=== PATIENT | female | born 1985 | race Caucasian/White ===

== ENCOUNTER 2023-04-08 16:58 | Outpatient (RCR) | payer OTHER, SELFPAY | END 2023-04-08 23:59 | disposition home or self-care (01) | LOC: RPT 16:58 | PROVIDERS: ATTENDING PHYSICIAN Specialist; FAMILY PHYSICIAN Family Medicine | DX: M75.31 Calcific tendinitis of right shoulder (principal); S43.431D Superior glenoid labrum lesion of right shoulder, subsequent encounter; M54.12 Radiculopathy, cervical region; M25.511 Pain in right shoulder; M54.2 Cervicalgia | CPT/HCPCS: 97110; 97112; 97140; 97530 ==

== ENCOUNTER 2023-05-05 14:00 | Outpatient (RCR) | payer OTHER, SELFPAY | END 2023-05-05 23:59 | disposition home or self-care (01) | LOC: RPT 14:00 | PROVIDERS: ATTENDING PHYSICIAN Specialist; FAMILY PHYSICIAN Family Medicine | DX: M75.31 Calcific tendinitis of right shoulder (principal); S43.431D Superior glenoid labrum lesion of right shoulder, subsequent encounter; M54.12 Radiculopathy, cervical region; M25.511 Pain in right shoulder; M54.2 Cervicalgia | CPT/HCPCS: 97110; 97112; 97530 ==

== ENCOUNTER 2023-06-03 17:04 | Outpatient (RCR) | payer OTHER, SELFPAY | END 2023-06-03 23:59 | disposition home or self-care (01) | LOC: RPT 17:04 | PROVIDERS: ATTENDING PHYSICIAN Specialist; FAMILY PHYSICIAN Family Medicine | DX: M75.31 Calcific tendinitis of right shoulder (principal); S43.431D Superior glenoid labrum lesion of right shoulder, subsequent encounter; M54.12 Radiculopathy, cervical region; M25.511 Pain in right shoulder; M54.2 Cervicalgia | CPT/HCPCS: 97110; 97112; 97530 ==

== ENCOUNTER → 2023-06-06 07:38 | Outpatient (REF) | payer OTHER, SELFPAY | LOC: RAD 07:38 | PROVIDERS: ATTENDING PHYSICIAN Internal Medicine Gastroenterology; FAMILY PHYSICIAN Family Medicine | DX: K50.018 Crohn's disease of small intestine with other complication (principal) | CPT/HCPCS: 74176 ==

== ENCOUNTER 2023-06-17 17:11 | Outpatient (RCR) | payer OTHER, SELFPAY | END 2023-06-18 07:45 | disposition home or self-care (01) | LOC: RPT 17:11 | PROVIDERS: ATTENDING PHYSICIAN Specialist; FAMILY PHYSICIAN Family Medicine | DX: M75.31 Calcific tendinitis of right shoulder (principal); S43.431D Superior glenoid labrum lesion of right shoulder, subsequent encounter; M54.12 Radiculopathy, cervical region; M25.511 Pain in right shoulder; M54.2 Cervicalgia | CPT/HCPCS: 97110; 97530 ==

== ENCOUNTER 2023-10-07 11:55 | Outpatient (RCR) | payer OTHER, SELFPAY | END 2023-10-07 23:59 | disposition home or self-care (01) | LOC: RPT 11:55 | PROVIDERS: ATTENDING PHYSICIAN Physician Assistant Surgical; FAMILY PHYSICIAN Family Medicine | DX: M62.81 Muscle weakness (generalized) (principal); M25.511 Pain in right shoulder; Z73.6 Limitation of activities due to disability; Z98.890 Other specified postprocedural states | CPT/HCPCS: 97010; 97110; 97112; 97140; 97161; 97530 ==

== ENCOUNTER 2023-10-23 12:05 | Outpatient (RCR) | payer OTHER, SELFPAY | END 2023-10-23 15:00 | disposition home or self-care (01) | LOC: RPT 12:05 | PROVIDERS: ATTENDING PHYSICIAN Physician Assistant Surgical; FAMILY PHYSICIAN Family Medicine | DX: M62.81 Muscle weakness (generalized) (principal); M25.511 Pain in right shoulder; Z73.6 Limitation of activities due to disability; Z98.890 Other specified postprocedural states | CPT/HCPCS: 97110; 97112; 97140; 97530 ==

== ENCOUNTER 2023-11-04 10:00 | Outpatient (RCR) | payer SELFPAY | END 2023-11-04 23:59 | disposition home or self-care (01) | LOC: RPT 10:00 | PROVIDERS: ATTENDING PHYSICIAN Physician Assistant Surgical; FAMILY PHYSICIAN Family Medicine | DX: M62.81 Muscle weakness (generalized) (principal); Z73.6 Limitation of activities due to disability; M25.511 Pain in right shoulder | CPT/HCPCS: 97110; 97112; 97530 ==

== ENCOUNTER 2023-12-02 11:51 | Outpatient (RCR) | payer SELFPAY | END 2023-12-02 23:59 | disposition home or self-care (01) | LOC: RPT 11:51 | PROVIDERS: ATTENDING PHYSICIAN Physician Assistant Surgical; FAMILY PHYSICIAN Family Medicine | DX: M62.81 Muscle weakness (generalized) (principal); Z98.890 Other specified postprocedural states; Z73.6 Limitation of activities due to disability; M25.511 Pain in right shoulder | CPT/HCPCS: 97110; 97112; 97530 ==

== ENCOUNTER 2024-09-01 13:12 | Emergency (ER) | payer OTHER, SELFPAY ==
[2024-09-01 13:14] VITALS: BP 144/88
[2024-09-01 13:41] LABS: % Basophils 0.6 % (0-2); % Eosinophils 2.1 % (0-6); % Immature Granulocytes 0.4 % (0-0.5); % Monocytes 7.1 % (1.7-9.3); % Neutrophils 56.8 % (42.2-75.2); Absolute Eosinophils 0.2 10^3/uL (0-0.7); Absolute Lymphocytes 2.3 10^3/uL (1.2-3.4); Absolute Monocytes 0.5 10^3/uL (0.1-0.6); Hematocrit 41.5 % (37.0-47.0); Hemoglobin 14.6 g/dL (12.0-16.0); Mean Corp Hgb Conc. 35.2 g/dL (33.0-37.0); Mean Corpuscular Hgb 31.3 pg (27.0-31.0); Mean Corpuscular Volume 88.9 fL (81.0-99.0); Mean Platelet Volume 8.9 fL (7.4-10.4); Nucleated Red Blood Cells % 0 %; Platelet Count 245 10^3/uL (130-400); Red Blood Cell Count 4.67 10^6/uL (4.20-5.40); Red Cell Dist. Width 11.9 % (11.5-14.5); White Blood Cell Count 7.1 10^3/uL (4.8-10.8)
[2024-09-01 13:54] LABS: Lactic Acid 1.5 mmol/L (0.7-2.0)
[2024-09-01 13:57] LABS: ALT (SGPT) 16 U/L (0-35); AST (SGOT) 19 U/L (14-36); Albumin 4.6 g/dl (3.5-5.0); Alkaline Phosphatase 79 U/L (38-126); Blood Urea Nitrogen 13 mg/dl (7-17); Calcium 9.5 mg/dl (8.4-10.2); Carbon Dioxide 24 mmol/L (22-30); Chloride 107 mmol/L (98-107); Glucose 95 mg/dl (70-99); Lipase 153 U/L (23-300); Potassium 4.4 mmol/L (3.5-5.1); Sodium 138 mmol/L (135-145); Total Protein 7.7 g/dl (6.3-8.2); eGFR > 60.00
[2024-09-01 14:27] LABS: HCG, Serum Qualitative Screen Negative
[2024-09-01 14:36] VITALS: BP 110/87
[2024-09-01 17:30] VITALS: BP 137/82
[2024-09-01] MEDS: OMNIPAQUE 50 ML PO (18:07)
--- NOTE | 2024-09-01 18:10 | ED.GENMED ---
History of Present Illness
General
Chief Complaint: Abdominal Pain
Source: patient
Exam Limitations: none
Time Seen by Provider: 09/01/24 17:48
Nursing documentation reviewed up to this point in time: agreed with
History of Present Illness
History of Present Illness:
Patient with history of Crohn's disease, currently not receiving any active treatment, presents to ED secondary to persistent upper abdominal pain over the past 5 days, which has worsened over the past 24 hours. Abdominal pain described as sharp,
nonradiating, without any alleviating or exacerbate factors. Patient does report regular bowel movements. Denies trauma. Denies diarrhea. Denies recent change in medications or diet. Denies sick contact. Denies recent travel. Patient states
her symptoms are somewhat different from her previous exacerbation of Crohn's disease. Patient's surgical history includes partial bowel resection.
Past History
Past History
ED Past Medical History: Other (Crohn's, Gilbert Disease (affects liver: abnormal bilirubin))
ED Past Surgical History: Bowel resection and Cholecystectomy
Social History
Tobacco: Former smoker
Alcohol: Occasional
Drug: None
Personal: Single
Living: with family
Employment: Employed
Family History
Family History: Other (Maternal grandmother with Crohn's)
Review of Systems
Review of Systems
Allergies reviewed?: Yes
All Other Systems: ROS reviewed and negative except as documented in HPI and ROS
Constitutional: Reports no symptoms; Denies fever or chills
Respiratory: Reports no symptoms
Cardiac: Reports no symptoms
ABD/GI: Reports abdominal pain; Denies vomiting or diarrhea
: Reports no symptoms
Musculoskeletal: Reports no symptoms
Skin: Reports no symptoms
Neurological: Reports no symptoms
Phy Exam
Physical Exam
Physical Exam:
Physical Exam
General: no apparent distress, not acutely ill. afebrile
Head: nc/at. eomi
Neck: supple. no meningeal signs.
Heart: s1/s2 regular rate and rhythm
Lungs: no acute respiratory distress. clear bilaterally
Abdomen: normal bowel sounds. not tender. no distention
Neuro: alert and oriented x 3. no focal neurological deficits
Skin: no rash
Psychiatric: well kept. interactive and cooperative
Extremities: no edema. no calf tenderness.
Course
Orders/Labs/Results
Orders:
Orders
09/01/24 13:23
Complete Blood Count/With Diff Urgent
Comprehensive Metabolic Panel Urgent
HCG, Serum Qualitative Screen Urgent
Comment: ADD ON
Lactic Acid Urgent
Lipase Urgent
Urine Culture Urgent
GERMAN Source: U
Specimen Description:
09/01/24 13:25
Add On- LAB Urgent
Tests Added?: hcg serum
09/01/24 17:52
CT Abd/pel (oral only)-[facility] Only Urgent
Comment:
Reason For Exam: upper abd pain w hx crohns dz. severe iv dye alleg
Iohexol [Omnipaque] See Protocol PO NOW STA
09/01/24 18:45
Urinalysis Routine
Urine Microscopic Routine
Abnormal Lab Results
09/01/24 09/01/24
13:23 18:45
MCH 31.3 H pg
(27.0-31.0)
Total Bilirubin 2.0 H mg/dl
(0.2-1.3)
Urine Occult Blood 1+ A
(Negative)
Urine Bacteria Moderate A
(Negative)
Urine Albumin 1+ A
(Neg - Trace)
09/01/24 13:23
09/01/24 13:23
Vital Signs
Initial and Last Documented VS:
Initial Vital Signs
Temp Pulse Resp BP Pulse Ox
98.6 F 85 16 144/88 99
09/01/24 13:14 09/01/24 13:14 09/01/24 13:14 09/01/24 13:14 09/01/24 13:14
Last Documented Vital Signs
Temp Pulse Resp BP Pulse Ox
98.6 F 84 18 123/82 99
09/01/24 13:14 09/01/24 22:04 09/01/24 22:04 09/01/24 22:04 09/01/24 22:04
MDM/Problems Addressed
MDM/Problems Addressed:
CT abdomen pelvis report reviewed and discussed with patient. Patient otherwise remains afebrile, hemodynamically stable, and nontoxic-appearing, during observation. Patient will be discharged home in stable condition, to the care of her family,
with recommendation to follow-up with her GI physician for reevaluation, or consider return to ED with worsening symptoms. Patient expresses understanding at time of discharge.
*Pulse Oximetry
SaO2: 99
Oxygen Mode of Delivery: Room air
Patient hypoxic: no
*Critical Care Note
Total Time (30-74mins, 75-104mins- exclusive of procedures): Not Applicable
ED Attending Note
-
Portions of this chart may have been created with voice recognition software.� Occasional wrong word or��sound alike� substitutions may have occurred due to the inherent limitations of voice recognition software.
Discharge Plan
Departure
Patient Disposition: Home (Routine Discharge)
Date of Disposition: 09/01/24
Time of Disposition: 22:02
Patient with high blood pressure during this ER visit?: Yes
Condition: Good
Discharge Problem:
Abdominal pain
Instructions: Abdominal Pain
Prescriptions:
No Action
colestipol [Colestid] 1 GM tablet
1 g PO BID
Nehal
2 tab PO BID
Zyrtec
2 tab PO BID
prednisone 20 mg tablet
40 mg PO DAILY 5 Days Qty: 10 0RF
cetirizine [Zyrtec] 10 mg tablet
10 mg PO DAILY Qty: 14 0RF
epinephrine [EpiPen 2-Azar] 0.3 mg/0.3 mL auto-injector
0.3 mg IM Q4H PRN (Reason: anaphylaxis) Qty: 2 0RF
Referrals:
J Carlos Joseph MD [Family Provider, Family Practice]
Activity Restrictions/Additional Instructions:
As discussed, please follow-up with your primary care physician and/or GI physician for reevaluation. Please consider return to ED with worsening symptoms, i.e. fever/worsening pain/vomiting.
Interventions
Interventions:
*Risk Screen - Suicide Last Done: 09/01/24 18:00
*General Assessment Last Done: 09/01/24 18:00
*Neglect/Abuse Screening Last Done: 09/01/24 18:00
*ED- Fall Risk Assessment Last Done: 09/01/24 18:00
*ED COVID-19 Vaccine History Last Done: 09/01/24 18:00
*Nursing Disposition Last Done: 09/01/24 22:06
EP-Uwibiz-Oswcdbiogm Assessment Last Done: 09/01/24 18:00
Discharge Date and Time
Discharge Date/Time: 09/01/24 22:06
Print Language: [id number]
[2024-09-01 18:59] LABS: Urine Albumin 1+ (Neg - Trace); Urine Bilirubin Negative (Negative); Urine Character Clear (Clear); Urine Color Yellow; Urine Glucose Negative (Negative); Urine Ketone Negative (Negative); Urine Leukocyte Negative (Negative); Urine Nitrite Negative (Negative); Urine Occult Blood 1+ (Negative); Urine Specific Gravity 1.025 (<1.030); Urine Urobilinogen Negative (Neg - 1+)
[2024-09-01 19:13] LABS: Urine Mucus Many; Urine Squamous Cell >30 /LPF (Few)
[2024-09-01 19:14] LABS: Urine Red Blood Cell 0-2 /HPF (0-2); Urine White Cell 0-2 /HPF (0-5)
[2024-09-01 19:15] LABS: Urine Bacteria Moderate (Negative)
[2024-09-01 22:04] VITALS: BP 123/82
== END 2024-09-01 22:06 | disposition home or self-care (01) ==
LOC: EMR 13:12
PROVIDERS: Emergency Medicine; EMERGENCY PHYSICIAN Emergency Medicine; FAMILY PHYSICIAN Family Medicine
DX: R10.10 Upper abdominal pain, unspecified (principal); Z87.891 Personal history of nicotine dependence; Z90.49 Acquired absence of other specified parts of digestive tract; Z87.19 Personal history of other diseases of the digestive system
CPT/HCPCS: 99284; 74176; 80053; 81003; 81015; 83605; 83690; 84703; 85025; 87086

== ENCOUNTER → 2024-11-26 10:55 | Outpatient (REF) | payer OTHER, SELFPAY | LOC: MRI 10:55 | PROVIDERS: ATTENDING PHYSICIAN Internal Medicine Gastroenterology; FAMILY PHYSICIAN Family Medicine | DX: K50.018 Crohn's disease of small intestine with other complication (principal) | CPT/HCPCS: 72197; 74183 ==